=== PATIENT | female | born 1995 | race Caucasian/White ===

== ENCOUNTER 2019-01-18 11:07 | Emergency (ER) | payer BC, SELFPAY ==
[2019-01-18 11:12] VITALS: BP 121/78; PULSE 86; RESP 16; TEMP 36.7; O2SAT 100
[2019-01-18 11:16] VITALS: RESP 14
--- NOTE | 2019-01-18 11:18 | NUR.NOTE ---
Nursing Note: Pt reports slamming right pointer finger in car door. Injury happened this morning. Per Pt tetanus 4 years ago.
--- NOTE | 2019-01-18 11:47 | W.ED.GENAD ---
Discharge Plan Disposition Patient Disposition: HOME Condition: Good Discharge Details Chief Complaint: GenMedical Clinical Impression: Contusion of finger Primary Care Provider: None,None ED Provider: Naman Bautista Discharge Instructions Additional Instructions: You have notably bruised the bone in your finger. There is a small clot under your fingernail, if this continues to be painful or becomes more painful we will need to burn a hole through the nail to get the blood out. If you notice worsening of your pain, numbness or tingling, or inability to flex or extend your finger over the next 1 to 2 days please return immediately for reassessment. If you notice any worsening of your symptoms, or any new symptoms such as vomiting, diarrhea, fever, chills, shortness of breath, chest pain, numbness, weakness, or fainting , please return immediately to the emergency department for reevaluation. Please follow up with your primary care provider as soon as possible for reassessment and reevaluation. As always, it was a pleasure participating in your medical care today. Medical Decision Making This is a pleasant 21-year-old female who presents for evaluation of right index finger pain on her dominant hand at the tip. No significant deformity, notable decrease in flexion and extension secondary to pain. Uncertain of tendon involvement. We will get an x-ray to rule out significant fracture. Patient is asking to withhold NSAIDs at this time 12:48 PM X-ray negative for acute fracture. Subungual hematoma not overly painful, no current indication for fenestration. Recommend continued NSAIDs, we will place finger splint. Discussed red flags which to return the importance of close follow-up with her PCP. I have extensively reviewed the treatment plan and discharge instructions with the patient. I have addressed all patient concerns at this time. The patient was made aware of what symptoms to monitor for that would warrant a return to the emergency department. Discussed the plan with the patient, they demonstrate verbal understanding and agreement with our assessment and plan at this time. FINDINGS: Bones/joints: Normal. No fracture There is no evidence of malalignment or dislocation. Soft tissues: Normal. IMPRESSION: No acute findings. Thank you for allowing us to participate in the care of your patient. Dictated and Authenticated by: Patty Nunez MD [facility] General Date/Time Provider Initiated Documentation: 01/18/19 11:26. HPI Narrative: This is a pleasant 23-year-old female with no significant past medical history who presents today for evaluation of pain in her right dominant hand on her index finger. 20 minutes ago she slammed in the car door. Exam demonstrates mild bleeding around the nail base, no evidence of deformity. Minimal subungual hematoma. Pain is made worse with movement. No radiation to the interphalangeal joint or the PIP joint. Pain is notably at the DIP joint. Difficulty with flexion extension secondary to pain. She has not taken any NSAIDs. She denies any other complaints at this time. No other evidence of trauma. General Stated Complaint: GenMedical ARELY: 4 Review of Systems Review of Systems All systems reviewed & are unremarkable except as noted in HPI and below PFSH Social History Smoking/Tobacco Use Status: Never Substance use type: does not use Do you feel safe at home: Yes Do you feel safe in your relationship?: Yes Exam Narrative Exam Narrative: 1.Const: Well-nourished, Well-developed, appearing stated age 2.Eyes: PERRL, no conjunctival injection, and symmetrical lids. 3.ENT: Atraumatic external nose and ears. Moist MM. Neck: Symmetric, trachea midline, No thyromegaly. 4.CVS: +S1/S2, No murmurs or gallops. Peripheral pulses 2+ and equal in all extremities. Brisk capillary refill in all extremities. 5.RESP: Unlabored respiratory effort. Clear to auscultation bilaterally. No wheezes rales or rhonchi 6.GI: Soft, Nontender/Nondistended, No hepatosplenomegaly. No guarding or rebound. 7.MSK: Patient's right index finger demonstrates notable contusion with a small amount of blood at the nail base. Pain is notably located at the distal aspect of the phalanx. Minimal pain at the DIP joint. Significant difficulty flexing and extending secondary to pain. Capillary refill is brisk. No other evidence of significant trauma. No other deformity 8.Skin: Warm, Dry. No rashes or lesions. 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 Sensation grossly intact, no focal neurologic deficits. 10.Psych: (AAO) x3. Appropriate mood and affect Course Vital Signs Temperature 36.7 C 01/18/19 11:12 Pulse 86 01/18/19 11:12 Respiratory Rate 16 01/18/19 11:12 Blood Pressure 121/78 01/18/19 11:12 Pulse Oximetry 100 01/18/19 11:12 Temperature 36.7 C 01/18/19 11:12 Temperature Source Temporal Artery Scan 01/18/19 11:12 Pulse 86 01/18/19 11:12 Respiratory Rate 14 01/18/19 11:16 Respiratory Effort 01/18/19 11:16 Respiratory Depth Normal 01/18/19 11:16 Respiratory Pattern Normal 01/18/19 11:16 Blood Pressure 121/78 01/18/19 11:12 Blood Pressure Position Sitting 01/18/19 11:12 Pulse Oximetry 100 01/18/19 11:12 Oxygen Delivery Method Room Air 01/18/19 11:12 Oxygen Flow Rate 0 01/18/19 11:12 Pain Level 2 01/18/19 11:16
--- NOTE | 2019-01-18 12:06 | DI.RAD_ITS ---
SYMPTOM/DIAGNOSIS: FINGER PAIN, TIP CRUSHED IN DOOR RIGHT HAND: 01/18 Three views of the hand were obtained for finger injury. No fracture is seen.
--- NOTE | 2019-01-18 12:30 | DI.VRAD_ITS ---
EXAM: XR Right Finger(s) EXAM DATE/TIME: 01/18/2019 11:31 AM CLINICAL HISTORY: 23 years old, female; Pain; Finger(s); Patient HX: Distal , right, index finger crushed in car door today. TECHNIQUE: Imaging protocol: XR Right fingers. Views: Minimum 2 views. COMPARISON: No relevant prior studies available. FINDINGS: Bones/joints: Normal. No fracture There is no evidence of malalignment or dislocation. Soft tissues: Normal. IMPRESSION: No acute findings. Dictated and Authenticated by: Patty Nunez MD. Ordering:KIMBERLY Florence MD
--- NOTE | 2019-01-18 13:01 | NUR.NOTE ---
Nursing Note: DC instructions provided. Right pointer finger splinted prior to DC.
== END 2019-01-18 13:00 | disposition home or self-care (01) ==
PROVIDERS: Emergency Provider Student in an Organized Health Care Education/Training Program
DX: S67.190A Crushing injury of right index finger, initial encounter (principal); S60.121A Contusion of right index finger with damage to nail, initial encounter; W23.0XXA Caught, crushed, jammed, or pinched between moving objects, initial encounter
CPT/HCPCS: 29130; 99283; 73140